=== PATIENT | female | born 1930 | race Caucasian/White ===

== ENCOUNTER 2018-09-16 13:03 | Emergency (ER) | payer OTHER ==
[~2018-09-16] VITALS: Ht 157.5 cm; Wt 62.6 kg
[2018-09-16 13:34] VITALS: Ht 157.5 cm; Wt 62.6 kg
[2018-09-16 14:38] LABS: BASOPHIL % 0.2 % (0-2); PLATELET COUNT 272 x10^3mcL (130-400)
[2018-09-16 14:50] LABS: CALCIUM 9.3 mg/dL (8.5-10.1); CARBON DIOXIDE 30.4 mmol/L (21-32); CHLORIDE SERUM 103 mmol/L (98-107); CREATININE SERUM 1.2 mg/dL (0.6-1.0); GLUCOSE SERUM 118 mg/dL (74-106); POTASSIUM SERUM 5.2 mmol/L (3.5-5.1); SODIUM SERUM 139 mmol/L (136-145)
[2018-09-16 14:54] LABS: ALKALINE PHOSPHATASE 55 U/L (46-116); ALT/SGPT 22 U/L (14-59); AST/SGOT 21 U/L (15-37); BILIRUBIN TOTAL 0.5 mg/dL (0.20-1.00); TOTAL PROTEIN, SERUM 7.5 g/dL (6.4-8.2)
[2018-09-16 16:39] VITALS: BP 140/88
== END 2018-09-16 16:39 | disposition home or self-care (01) ==
LOC: ED 13:03
PROVIDERS: Emergency Medicine
DX: R42 Dizziness and giddiness (principal); J44.9 Chronic obstructive pulmonary disease, unspecified; Z86.73 Personal history of transient ischemic attack (TIA), and cerebral infarction without residual deficits; Z90.710 Acquired absence of both cervix and uterus; Z88.0 Allergy status to penicillin
CPT/HCPCS: 36415; 82962

== ENCOUNTER 2018-12-07 20:56 | Inpatient (IN) | payer OTHER ==
[~2018-12-07] VITALS: Ht 157.5 cm; Wt 60.1 kg
[2018-12-07 20:58] VITALS: Ht 157.5 cm; Wt 60.1 kg
--- NOTE | 2018-12-07 21:06 | NUR ---
PER MEDIC PT WAS AT HOME WHEN SHE STARTED TO FEEL SOB. PER MEDIC PT FAMLY TOOK PULSE OX AND WAS 86%. PER MEDIC PTS FAMILY WAS CONCERNED AND CALLED 911. PT STS THAT SHE WAS FEELING SOB ALL DAY AND WAS JUST RELAXING AT HOME. PT STS THAT SHE HAS BEEN HAVING A COUGH FOR THE LAST THREE DAYS WITH WHITE PHLEGM. PT STS SHE IS IN AFIB BUT IS NOT EXPERIENCING ANY CHEST PAIN AT THIS MOMENT. PT STS THAT SHE DOES NOT HAVE A HX OF ANY HEART IRREGULARITIES. UPON ASSESSMENT PT HAS CLEAR JENNIFER LUNG SOUNDS. PT IS ALERT AND ORIENTED, SPEAKING IN CLEAR AND FULL SENTENCES. VSS. WILL CONTINUE TO MONITOR.
--- NOTE | 2018-12-07 21:12 | NUR ---
PT STS SHE IS USUALLY ON 3L AT HOME NC. PT INITIALLY WAS HAVING LABORED BREATHING WITH TRIPODING NOTED. PT STS THAT SHE IS NOW FEELING BETTER SITTING BACK ON GURNEY SPAO2 98%.
--- NOTE | 2018-12-07 21:27 | NUR ---
MEDICATED ORDERED. LAB AT BEDSIDE.
[2018-12-07 21:39] LABS: BASOPHIL % 0.3 % (0-2); PLATELET COUNT 366 x10^3mcL (130-400)
[2018-12-07] MEDS ORDERED: ALENDRONATE SOD70 M2 PO (21:48)
[2018-12-07] MEDS ORDERED: ALBUTEROL0.63 MG/3 (21:48)
[2018-12-07] MEDS ORDERED: ELIQUIS2.5 MG PO (21:49)
[2018-12-07] MEDS ORDERED: GABAPENTIN100 M2 PO (21:49)
[2018-12-07] MEDS ORDERED: DIGOXIN0.125 M1 PO (21:49)
[2018-12-07] MEDS ORDERED: METOPROLOL SUCC50 M2 PO (21:50)
[2018-12-07] MEDS ORDERED: PAROXETINE10 M1 PO (21:51)
[2018-12-07] MEDS ORDERED: MONTELUKAST SOD10 M1 PO (21:51)
[2018-12-07] MEDS ORDERED: SYMBICORT1 AE2 (21:51)
[2018-12-07] MEDS ORDERED: MUCINEX600 MG PO (21:52)
[2018-12-07 21:57] LABS: CHLORIDE SERUM 106 mmol/L (98-107); GLUCOSE SERUM 122 mg/dL (74-106); POTASSIUM SERUM 4.2 mmol/L (3.5-5.1); SODIUM SERUM 144 mmol/L (136-145)
[2018-12-07 22:04] LABS: ALKALINE PHOSPHATASE 75 U/L (46-116); ALT/SGPT 47 U/L (14-59); AST/SGOT 46 U/L (15-37); BILIRUBIN TOTAL 0.69 mg/dL (0.20-1.00)
[2018-12-07 22:07] LABS: ALBUMIN 2.5 g/dL (3.4-5.0)
--- NOTE | 2018-12-07 22:33 | NUR ---
DR. SCHNEIDER INSTRUCTED TO PLACE PT ON 6L NC. ATTEMPTED TO TREND DOWN PT SPAO2 WENT TO 83%. PT PLACED BACK ON 15L MASK. DR. SCHNEIDER INFORMED.
--- NOTE | 2018-12-07 23:01 | NUR ---
MEDICATED ORDERED SEE EMAR.
[2018-12-08] VITALS (7 sets, daily range): BP systolic 88–131; BP diastolic 43–58
--- NOTE | 2018-12-08 00:17 | NUR ---
PER DR. JENNIE TUBBS TO MOVE PT AFTER [facility].
--- NOTE | 2018-12-08 00:31 | NUR ---
PAGED DR. MOSLEY FOR ADMITTING ORDERS. WAITING FOR CALLBACK.
--- NOTE | 2018-12-08 00:55 | NUR ---
RECEIVED PT FROM ER VIA GURNEY ACCOMPANIED WITH NURSES, PT SEEN, ALERT AND ORIENTED X 4 AND VERY VERBALLY RESPONSIVE, DENIES HEADACHE OR DIZZINESS, LABORED BREATHING NOTED, LUNG SOUNDS CRACKLES, ON NON-REBREATHER 15L WITH SPO2:94%, ON TELE#13 A-FIB, SL TO RAC, PULSES PALPABLE, NO EDEMA NOTED, GENERALIZED WEAKNESS, ABD SOFT WITH ACTIVE BS, NO BM AT THIS TIME, PHILLIP VIA GRAVITY DRAINING CLEAR YELLOW URINE, NO OPEN PRESSURE INJURY NOTED, PRIMARY NURSE-WIL AT BEDSIDE FOR CONT CARE.
--- NOTE | 2018-12-08 01:04 | NUR ---
SPOKE TO DR. MOSLEY REGARDING CARDIZEM IVP ORDERS, PER DR. MOSLEY, INPUT ORDER AND MEDICATIONS WILL BE ADJUSTED TOMORROW.
--- NOTE | 2018-12-08 01:27 | NUR ---
PT PLACED ON 10L OXYMIZER BY RT, CURRENT O2 SATURATION AT 94-95%. PT TOLERATING WELL. WILL CONTINUE TO MONITOR.
--- NOTE | 2018-12-08 05:44 | NUR ---
PT RESTING IN BED. EASILY AROUSABLE TO NAME. DENIES PAIN. NO C/O CP. DENIES FEELING SOB. ENCOURAGED PT TO CALL WHEN PT FEELS SOB IN ORDER TO GET RT TREATMENT. PT VERBALIZED UDNERSTANDING. CALL LIGHT WITHIN REACH. SAFETY MEASURES IN PLACE. WILL ENDORSE TO ONCOMING NURSE.
[2018-12-08 06:38] LABS: BASOPHIL % 0.3 % (0-2); PLATELET COUNT 363 x10^3mcL (130-400)
--- NOTE | 2018-12-08 06:39 | NUR ---
PT SLEPT THROUGHOUT NIGHT. DENIES PAIN. NO S/S ACUTE DISTRESS. NO CHANGES OVERNIGHT. ALL NEEDS MET AND ATTENDED TO. IV SITE REMAINS CDI, NO ERYTHEMA OR EDEMA. CALL LIGHT WITHIN REACH. SAFETY MEASURES IN PLACE. WILL ENDORSE CARE TO ONCOMING SHIFT.
[2018-12-08 07:03] LABS: RED CELL DISTRIBUTION WIDTH 15.7 % (11.5-14.5)
[2018-12-08 07:06] LABS: CALCIUM 9.1 mg/dL (8.5-10.1); CARBON DIOXIDE 36.5 mmol/L (21-32); CHLORIDE SERUM 101 mmol/L (98-107); CREATININE SERUM 1.1 mg/dL (0.6-1.0); GLUCOSE SERUM 115 mg/dL (74-106); MAGNESIUM 1.9 mg/dL (1.8-2.4); PHOSPHOROUS 3.7 mg/dL (2.5-4.9); POTASSIUM SERUM 3.9 mmol/L (3.5-5.1); SODIUM SERUM 144 mmol/L (136-145)
--- NOTE | 2018-12-08 07:10 | NUR ---
RECEIVED PT FROM DARA RN. PT FOUND RESTING IN BED WITH BOTH EYES CLOSED. EASILY AROUSABLE TO VERBAL STIMULI. FACE SYMMETRICAL, SPEECH CLEAR. NO OLMOS. NO DIZZINESS. DENIES SOB ON 10L OXYMIZER. FINE/COARSE CRACKLES HEARD BILATERALLY. RR EVEN/SHALLOW/UNLABORED. DENIES CHEST PAIN. AFIB ON TELE 13, HR 87. AA/OX4. FOLLOWS COMPLEX COMMANDS, RESPONDS TO VERBAL STIMULI, FACE SYMMETRICAL, SPEECH CLEAR. PHILLIP IN TACT DRAINING CLEAR/YELLOW URINE. MILD GENERALIZED WEAKNESS NOTED. ABLE TO REPOSITION INDEPENDENTLY. IV WNL TO RAC, NO REDNESS, NO SWELLING, NO INFILTRATION. PATENT AND FLUSHES WELL. SALINE LOCKED. INSTRUCTED TO USE CALL LIGHT TO CALL FOR ASSISTANCE PRN. VERBALIZED UNDERSTANDING. SKIN WARM, DRY, INTACT. BED IN LOW POSITION. CALL LIGHT WITHIN REACH. WILL CONTINUE TO MONITOR.
--- NOTE | 2018-12-08 09:08 | NUR ---
IV LEAKING TO RFA, IV REMOVED, CATHETER IN TACT. PRESSURE APPLIED. SITE WNL. IV INSERTED TO LFA, 22 GAUGE. PT AND FLUSHES WELL. SALINE LOCKED. NO REDNESS, NO SWELLING, NO INFILTRATION. PATIENT COMPLAINT OF PAIN TO LH. PT RATES PAIN 4/10, PT DESCRIBES ACHING. ACUTE. GIVEN PO TYLENOL. PT ON 8L OXYMIZER, O2 SAT 91%, PT RECEIVED BREATHING TREATMENT. NO S/S OF ACUTE DISTRESS. PERRLA, BRISK, SIZE 2. FACE SYMMETRICAL. SPEECH CLEAR. PHILLIP IN TACT. AA/OX4. BED IN LOW POSITION. CALL LIGHT WITHIN REACH. WILL CONTINUE TO MONITOR.
--- NOTE | 2018-12-08 09:37 | NUR ---
O2 SAT 98% ON 8L OXYMIZER, HR RANGES BETWEEN 100-126, PO CARDIZEM GIVEN. NO CHEST PAIN. PT RESTING IN BED WITH BOTH EYES CLOSED. NO S/S OF ACUTE DISTRESS. NO SOB NOTED. CONGESTED COUGH NOTED. BED IN LOW POSITION. CALL LIGHT WITHIN REACH. WILL CONTINUE TO MONITOR.
--- NOTE | 2018-12-08 10:34 | NUR ---
PT RESTING IN BED WITH BOTH EYES CLOSED. NO S/S OF ACUTE DISTRESS. NO COMPLAINT OF PAIN. NO SOB ON 8L OXYMIZER. RR EVEN/UNLABORED AT THIS TIME. CHEST EXPANSION SYMMETRICAL. NO S/S OF CHEST PAIN. AFIB ON TELE, HR 119. GIVEN PO CARDIZEM X1, SEE EMAR. IV WNL TO LFA, SALINE LOCKED. BED IN LOW POSITION. CALL LIGHT WITHIN REACH. WILL CONTINUE TO MONITOR CLOSELY.
--- NOTE | 2018-12-08 12:23 | NUR ---
HR DECREASING AFIB HR 90 AT THIS TIME. NO CHEST PAIN. NO OLMOS. NO DIZZINESS. NO COMPLAINT OF SOB ON 8L OXYMIZER, O2 SAT DECREASED TO 85%, OXYGEN TITRATED TO 9L, O2 SAT INCREASED TO 93% WITH OXYMIZER. RT AT BEDSIDE FOR TREATMENT. PT CALM/COOPERATIVE. SPEAKING IN FULL SENTENCES. NO S/S OF ACUTE DISTRESS. SPEECH CLEAR. FACE SYMMETRICAL. FAMILY AT BEDSIDE. IV WNL TO LFA, NO REDNESS, NO SWELLING, NO INFILTRATION. PATENT. IV ANTIBIOTIC RUNNING. BED IN LOW POSITION. CALL LIGHT WITHIN REACH. WILL CONTINUE TO MONITOR.
--- NOTE | 2018-12-08 13:30 | NUR ---
LATE ENTRY: OCCURED AT 1325. BP TRENDING LOW, LEFT UPPER ARM 70/40, DR. BARAKAT AWARE. RECEIVED TELEPHONE ORDERS FOLLOWS: 200ML ALBUMIN 25% AT 100ML/HR ONE TIME FOR LOW BLOOD PRESSURE, DISCONTINUE CARDIZEM 30MG PO, IF SBP <90 AFTER RECEIVING ALBUMIN, GIVE MIDODRINE 5 MG PO Q 6HRS PRN FOR SBP <90. ORDER ENTERED. WILL CARRY OUT. PT SWEATING. REPORTS FEELING "LIGHT HEADED" WITH CHANGE IN VISION. AFIB WITH HR 97 ON TELE 13. DENIES CHEST PAIN. O2 SAT 92% ON 8L OXYMIZER. DENIES SOB AT THIS TIME. WILL CONTINUE TO MONITOR. CALL LIGHT WITHIN REACH. BED IN LOW POSITION. IV WNL TO LFA, NO REDNESS, NO SWELLING, NO INFILTRATION. PATENT AND FLUSHES WELL. FAMILY AT BEDSIDE. WILL CONTINUE TO MONITOR.
--- NOTE | 2018-12-08 15:25 | NUR ---
BP TRENDING UP 94/43 (63), HR 97, DENIES N/V. NO CHEST PAIN. NO DIZZINESS. NO OLMOS. NO SWEATING AT THIS TIME. FOUND RESTING IN BED WITH BOTH EYES CLOSED. EASILY AROUSABLE TO VERBAL STIMULI, FACE SYMMETRICAL. SPEECH CLEAR. REPORTS MILD PAIN TO RLE FOOT, ACHING, INTERMITTENT, GIVEN TYLENOL PO. RATES PAIN 4/10. IV WNL TO LFA, NO REDNESS, NO SWELLING, NO INFILTRATION. PATENT AND FLUSHES WELL. PT CALM/COOPERATIVE. BED IN LOW POSITION. CALL LIGHT WITHIN REACH. WILL CONTINUE TO MONITOR.
--- NOTE | 2018-12-08 18:01 | NUR ---
PT FOUND RESTING IN BED WITH BOTH EYES CLOSED. NO S/S OF ACUTE DISTRESS. DROWSY BUT AROUSABLE TO TACTILE STIMULI. BP 11/355, HR 71, TEMP 97.2F, RR 15, O2 SAT 100% ON 8L OXYMIZER, TITRATED TO 7L. RR EVEN/UNLABORED AT THIS TIME. CALM/COOPERATIVE. IV WNL TO LFA, NO REDNESS, NO SWELLING, NO INFILTRATION. PATENT AND FLUSHES WELL. SALINE LOCKED. FAMILY AT BEDSIDE. WILL ENDORSE TO ONCOMING SHIFT.
--- NOTE | 2018-12-08 19:18 | NUR ---
RECEIVED PT FROM PREVIOUS SHIFT. AAO. SITTING UP IN BED SPEAKING TO FAMILY AT BEDSIDE. TELE #13 SHOWING A-FIB, HR 95. DENIES CP. DENIES PALPITATIONS. PT C/O NERVE PAIN R/T NEUROPATHY, PT MISSED 2 DOSES YESTERDAY AND "IT GOT REALLY BAD". PT AWARE OF NEXT DOSE SCHEDULED FOR TONIGHT. RT CALLED SINCE PT REQUESTING BREATHING TX. NO S/S ACUTE DISTRESS. ON 9L OXYMIZER, BREATHING E/U. CALL LIGHT WITHIN REACH. SAFETY MEASURES IN PLACE. WILL CONTINUE TO MONITOR.
--- NOTE | 2018-12-09 00:21 | NUR ---
PT RESTING IN BED WITH EYES CLOSED. REMAINS ON 9L OXYGEN OXYMIZER. BREATHING E/U. NO SIGNS OF PAIN APPARENT. CALL LIGHT WITHIN REACH. SAFETY MEASURES IN PLACE. WILL CONTINUE TO MONITOR.
[2018-12-09 04:43] VITALS: BP 120/73
--- NOTE | 2018-12-09 05:48 | NUR ---
PT SLEPT WELL THROUGHOUT NIGHT. BREATHING E/U ON 9L OXYMIZER. DENIES SOB, PT NOT REQUESTING BREATHING TX AT THIS TIME. DENIES PAIN. DENIES PALPITATIONS. NO S/S ACUTE DISTRESS. NO CHANGES OVERNIGHT. ALL NEEDS MET AND ATTENDED TO. IV SITE REMAINS CDI, NO ERYTHEMA OR EDEMA. CALL LIGHT WITHIN REACH. SAFETY MEASURES IN PLACE. WILL ENDORSE CARE TO ONCOMING SHIFT.
--- NOTE | 2018-12-09 07:06 | NUR ---
BEDSIDE REPORT GIVEN TO MIKE HERNANDEZ. ALL QUESTIONS AND CONCERNS ADDRESSED.
--- NOTE | 2018-12-09 07:09 | NUR ---
RECEIVED PT FROM SHIFT NURSE ASLEEP BUT AROUSABLE. APPEARS IN NO ACUTE DISTRESS. RESP EVEN AND UNLABORED ON 9L OXYMIZER. HEPLOCK PATENT. PHILLIP CATH IN PLACE DRAINING YELLOW URINE. FALL PRECAUTIONS IN PLACE. BED IN LOW POSITION. CALL LIGHT WITHIN REACH. WILL CONTINUE TO MONITOR.
[2018-12-09 07:42] LABS: BASOPHIL % 0.1 % (0-2); PLATELET COUNT 396 x10^3mcL (130-400); RED CELL DISTRIBUTION WIDTH 16.1 % (11.5-14.5)
[2018-12-09 08:31] LABS: ALBUMIN 3.2 g/dL (3.4-5.0); ALKALINE PHOSPHATASE 74 U/L (46-116); ALT/SGPT 59 U/L (14-59); AST/SGOT 48 U/L (15-37); BILIRUBIN TOTAL 0.87 mg/dL (0.20-1.00); CALCIUM 9.7 mg/dL (8.5-10.1); CARBON DIOXIDE 34.4 mmol/L (21-32); CHLORIDE SERUM 101 mmol/L (98-107); CREATININE SERUM 1.4 mg/dL (0.6-1.0); GLUCOSE SERUM 162 mg/dL (74-106); MAGNESIUM 2.3 mg/dL (1.8-2.4); SODIUM SERUM 146 mmol/L (136-145); TOTAL PROTEIN, SERUM 7.5 g/dL (6.4-8.2)
[2018-12-09 08:45] VITALS: BP 104/63
--- NOTE | 2018-12-09 08:53 | NUR ---
PT HR 130. PT DENIES SOB. DENIES CHEST PAIN OR PRESSURE. WILL CONTINUE TO MONITOR.
[2018-12-09 11:00] VITALS: BP 95/57
--- NOTE | 2018-12-09 11:45 | NUR ---
PT SITTING UP IN BED RESTING. RESP EVEN AND UNLABORED ON 7L OXYMIZER. DENIES SOB. CALL LIGHT WITHIN REACH. WILL CONTINUE TO MONITOR.
[2018-12-09 13:17] VITALS: BP 103/59
[2018-12-09 18:13] VITALS: BP 100/52
--- NOTE | 2018-12-09 18:25 | NUR ---
PT SITTING UP IN BED TALKING WITH FAMILY MEMBERS. RESP EVEN AND UNLABORED ON 7L OXYMIZER. 02 SAT 96% IV INTACT AND PATENT. PHILLIP CATH IN PLACE DRAINING YELLOW COLORED URINE. FALL PRECAUTIONS IN PLACE. BED IN LOW POSITION. CALL LIGHT WTIHIN REACH. WILL BE ENDROSED.
--- NOTE | 2018-12-09 19:50 | NUR ---
PT. AWAKE, ALERT, ORIENTED X4. DENIES HEADACHE OR DIZZINESS. BREATH SOUNDS DIMINISHED BLL, EXPIR. WHEEZING BUL. RESP. EVEN, UNLABORED. NO SOB NOTED. PT. ON OXYMIZER, 7L. ABD. SOFT AND FLAT, BOWEL SOUNDS ACTIVE. PT. C/O CONSTIPATION. DENIES ABD. PAIN, DENIES NAUSEA. F/C DRAINING WELL TO GRAVITY. NO EDEMA NOTED TO EXTREMITIES. PEDAL PULSES MODERATE. IV SITE INTACT. FAMILY AT BEDSIDE. CALL LIGHT WITHIN REACH.
--- NOTE | 2018-12-09 21:01 | NUR ---
PT C/O CONSTIPATION DURING ASSESMENT ROUNDS. PT. STATED THAT SHE HAS THE URGE BUT HAS NOT BEEN ABLE TO HAVE A BM. / [employer] FINANCIAL WRITER, MADE AWARE. RECEIVED T/O FOR ONE TIME DOSE OF MOM.
[2018-12-09 21:29] VITALS: BP 113/56
--- NOTE | 2018-12-10 01:10 | NUR ---
PT. APPEARS COMFORTABLE, W/ EYES CLOSED. NO COMPLAINTS THUS FAR. NO RESP. DISTRESS. CALL LIGHT REMAINS WITHIN REACH.
[2018-12-10 05:08] VITALS: BP 133/67
--- NOTE | 2018-12-10 06:45 | NUR ---
PT. SLEEPING. NO C/O THROUGHOUT NIGHT. PT. UNABLE TO HAVE BM SINCE RECEIVING MOM. IV SITE REMAINS INTACT. CALL LIGHT WITHIN REACH. WILL ENDORSE PT. CARE TO INCOMING NURSE.
--- NOTE | 2018-12-10 07:49 | NUR ---
RECEIVED PATIENT FROM MIKE MARTINEZ. PATIENT SEATED IN BED, USING OXYMIZER AT [address] GARCIA IN TO REVIEW PATIENT FILE. NO COMPLAINTS AT THIS TIME. REPEAT CXR BEING TAKEN AT THIS TIME. MADE PATIENT AWARE OF PLAN OF CARE FOR TODAY AND PATIENT AGREES. CALL LIGHT IN REACH AT THIS TIME.
[2018-12-10 11:46] LABS: ALKALINE PHOSPHATASE 74 U/L (46-116); ALT/SGPT 93 U/L (14-59); AST/SGOT 71 U/L (15-37); CALCIUM 9.7 mg/dL (8.5-10.1); CARBON DIOXIDE 36.2 mmol/L (21-32); CHLORIDE SERUM 101 mmol/L (98-107); CREATININE SERUM 1.5 mg/dL (0.6-1.0); GLUCOSE SERUM 205 mg/dL (74-106); POTASSIUM SERUM 4.4 mmol/L (3.5-5.1); SODIUM SERUM 144 mmol/L (136-145); TOTAL PROTEIN, SERUM 6.9 g/dL (6.4-8.2)
[2018-12-10 11:47] LABS: ALBUMIN 2.9 g/dL (3.4-5.0)
[2018-12-10 11:57] VITALS: BP 112/45
[2018-12-10 11:58] LABS: BASOPHIL % 0 % (0-2); PLATELET COUNT 481 x10^3mcL (130-400)
--- NOTE | 2018-12-10 14:28 | NUR ---
PATIENT IN BED RESTING AT THIS TIME. FAMILY AT BEDSIDE. HR CONTINUES TO BE IN THE 100S, INTERMITTENT ELEVATION TO 120s. DENIES PALPITATIONS, CHEST PAIN. WILL CONTINUE TO MONITOR.
--- NOTE | 2018-12-10 15:23 | NUR ---
PHYSICAL THERAPY DAILY NOTES CO-SIGN All documentation done by the Head Concierge for 12/10/18 has been reviewed. I agree with the documentation. Reviewed/Co-Signed by: Yesenia Marie PT Documentation Done by:GLADYS HUBBARD PTA
--- NOTE | 2018-12-10 16:25 | NUR ---
SPOKE AT LENGTH TO PATIENT DAUGHTER ABOUT DR DENNIS AND DR DONG PLAN OF CARE. PATIENT DAUGHTER WOULD LIKE TO SPEAK WITH DR DENNIS, INFORMED THEM TO WAIT FOR MULTIMEDIA DEVELOPER TO CONTACT THEM OR TO TRY TO ARRIVE EARLY TOMORROW AM TO SPEAK WITH DR DENNIS. ALSO, NEW IV ACCESS INSERTED TO PATIENT RFA. FAMILY AT BEDSIDE, CALL LIGHT IN REACH.
[2018-12-10 17:38] VITALS: BP 110/58
--- NOTE | 2018-12-10 18:41 | NUR ---
PATIENT SLEEPING IN BED. DURING DINNER TRAY CONSUMPTION, HR BECAME ELEVATED TO 120-135s. NOTIFIED BY [employer]. PRN CARDIZEM IVP ADMINISTERED. PATIENT DENIES CHEST PAIN, DIZZINESS, PALPITATIONS. WILL CONTINUE TO MONITOR AND ENDORSE TO ONCOMING NURSE.
--- NOTE | 2018-12-10 19:45 | NUR ---
AWAKE AND VERBALLY RESPONSIVE. ABLE TO MAKE NEEDS KNOWN. SKIN WARM AND DRY TO TOUCH. RESPIRATION EVEN AND UNLABORED. NO S/S OF ACUTE DISTRESS. ON TELE #13 WITH AFIB, NO C/O OF CHEAT PAIN. PT CLAINED NO BM FOR 4DAYS. DR WOOTEN WAS CALLED,LEFT MESSAGE WITH EXCHANGE., AWAITNG FOR RETURN CALL.
--- NOTE | 2018-12-10 21:10 | NUR ---
DR DENNIS GAVE ORDERS AND CARRIED OUT. DULCOLAX TAB 10MG PO GIVEN ORDERED/MUCINEX GIVEN FOR COUGH ORDERED.WILL CONTINUE T MONITOR.
[2018-12-10 21:44] VITALS: BP 150/60
--- NOTE | 2018-12-10 23:15 | NUR ---
ASSISSTED WITH BED MAGALLANES, HAD EPISODE OF X1 BM DARK BROWNISH COLOR FORMED IN LARGE AMOUNT. GOOD PERICARE RENDERED. KEPT CLEAN AND DRY.
--- NOTE | 2018-12-11 00:45 | NUR ---
EYES CLOSED, APPRENTLY ASLEEP SOUNDLY. , RESPONSIVE TO VERBAL STIMULI. MAINTAINED A THERAPEUTIC ENVIRONMENT. BED IN LOWEST POSITION FOR SAFETY.
[2018-12-11 05:46] VITALS: BP 161/74
--- NOTE | 2018-12-11 06:06 | NUR ---
ALL DUE MEDICATIONS GIVEN AND WELL TOLERATED. NO S/S OF ASPIRATION NOTED. KEPT CLEAN AND DRY. ALL NEEDS ATTENDED.
[2018-12-11 06:18] VITALS: BP 132/76
--- NOTE | 2018-12-11 07:10 | NUR ---
RECEIVED PATIENT FROM AIR DUCT MECHANIC NURSE. PATIENT IS AWAKE, ALERT AND ORIENTED. TELE#13,A-FIB/A-FLUTTER, HR 88. DENIES CHEST PAIN AND DISCOMFORT. ON ELIQUIS PO. PATIENT IS ON OXYMIZER 7L, RESP E/U. FALL PREC IN PLACE. IV NOTED TO RFA, SALINE LOCKED, NO S/S ERYTHEMA AT SITE. CALL LIGHT WITHIN EASY REACH. WILL CONTINUE PLAN OF CARE.
[2018-12-11 09:34] VITALS: BP 110/41
[2018-12-11] MEDS ORDERED: PRE20 PO (10:02)
[2018-12-11] MEDS ORDERED: METOPROLOL TART25 M1 PO (10:03)
--- NOTE | 2018-12-11 14:48 | NUR ---
PATIENT UP WITH PT AT THIS TIME. TOLERATING WELL.
--- NOTE | 2018-12-11 14:50 | NUR ---
TITRATED PT OFF THE OXYMIZER AND PLACED HER ON 5L NC WITH BUBBLE HUMIDIFIER ORDERED. PT SPO2 WAS 95%. NO RESP DISTRESS NOTED. RN MADE AWARE. WILL CONT TO MONITOR
[2018-12-11 17:29] VITALS: BP 122/56
[2018-12-11 18:18] VITALS: BP 117/88
--- NOTE | 2018-12-11 18:29 | NUR ---
PATIENT RESITING EASY. DENIES PAIN AND DISCOMFORT AT THIS TIME. PHILLIP CARE COMPLETED. RESP E/U ON 5L NC. PATIENT CARE TO BE ENDORSED TO CUSTOMER SOLUTIONS SUPERVISOR NURSE.
--- NOTE | 2018-12-11 19:30 | NUR ---
RECIEVED PT IN NO ACUTE DISTRESS. AOX4. TELE #13, AFIB, HR 110'S. DENIES DIZZINESS. LUNGS CLEAR ON NC @ 5L, DENIES SOB. PHILLIP IN PLACE WITH DOLORES URINE. IV TO RAC, NO REDNESS/SWELLING. BED IN LOWEST POSITION, 2 SIDE RAILS UP, CALL LIGHT IN REACH. INSTRUCTED TO CALL FOR ASSISTANCE.
[2018-12-11 20:07] VITALS: BP 143/78
--- NOTE | 2018-12-12 02:38 | NUR ---
RESTING IN BED WITH EYES CLOSED. BREATHIG E/U. NO ACUTE DISTRESS NOTED. WILL CONTINUE TO MONITOR.
[2018-12-12 04:41] VITALS: BP 116/72
--- NOTE | 2018-12-12 06:15 | NUR ---
NO C/O DIZZINESS OVERNIGHT. HR 80-110'S THROUGHOUT SHIFT. O2 SAT 94% ON 5L NC. PT HAD BM X 3. NO ACUTE DISTRESS NOTED. WILL ENDORSE TO ONCOMING RN.
--- NOTE | 2018-12-12 07:20 | NUR ---
RECEIVED PATIENT FROM DIGITAL ACCOUNT DIRECTOR NURSE. PATIENT IS RESTING WITH BOTH EYES CLOSED, AROUSABLE. TELE#13, A-FIB/A-FLUTTER, HR 102. ON 5L NC, RESP E/U. PHILLIP CATHETER DRIANING URINE TO GRAVITY WELL. IV NOTED TO RAC, SALINE LOCKED, NO S/S ERYTHEMA AT SITE. CALL LIGHT WITHIN EASY REACH. FAL PREC IN PLACE. WILL CONTINUE PLAN OF CARE.
[2018-12-12 08:07] VITALS: BP 153/87
[2018-12-12 13:09] VITALS: BP 119/73
--- NOTE | 2018-12-12 15:46 | NUR ---
REPORT CALLED AND GIVEN TO JAMA ANDERSON AT [facility]. PATIENT SCHEDULED FOR P/UP AT 1600.
--- NOTE | 2018-12-12 16:12 | NUR ---
PHILLIP CATHETER DC'D AT THIS TIME. PATIENT PREPARED FOR TRANSFER TO [facility]IA [facility].
--- NOTE | 2018-12-12 16:43 | NUR ---
PATIENT TRANSFERRED VIA [facility] WITH [facility] AT THIS TIME. PATIENT AWAKE, ALERT AND ORIENTED. VS STABLE. NO S/S ACUTE DISTRESS. NO C/O PAIN OR DISCOMFORT. ALL TRANSFER PAPERWORK EXPLAINED TO PATIENT AND SON. TELE MONITOR REMOVED AND RETURNED TO [employer].
== END 2018-12-12 16:43 | DRG 291 ==
LOC: ED 20:56 → DU 23:13
PROVIDERS: Emergency Medicine; Internal Medicine Nephrology; Internal Medicine Pulmonary Disease; ADMIT Internal Medicine Pulmonary Disease
DX: I11.0 Hypertensive heart disease with heart failure (principal); J96.21 Acute and chronic respiratory failure with hypoxia; J44.1 Chronic obstructive pulmonary disease with (acute) exacerbation; J81.1 Chronic pulmonary edema; I48.1 Persistent atrial fibrillation; J44.0 Chronic obstructive pulmonary disease with (acute) lower respiratory infection; I50.33 Acute on chronic diastolic (congestive) heart failure; M81.0 Age-related osteoporosis without current pathological fracture; J20.9 Acute bronchitis, unspecified; Z99.81 Dependence on supplemental oxygen; Z68.24 Body mass index [BMI] 24.0-24.9, adult; Z87.891 Personal history of nicotine dependence; Z86.73 Personal history of transient ischemic attack (TIA), and cerebral infarction without residual deficits
CPT/HCPCS: 36600; 97110-GP; 97116-GP; 97530-GP; G0378; J0456; J1940; J2920; J3490; J7050; J7512; J7626; P9047; Q0092

== ENCOUNTER 2019-05-18 16:46 | Emergency (ER) | payer OTHER ==
[~2019-05-18] VITALS: Ht 157.5 cm; Wt 62.6 kg
[~2019-05-18 16:46] MED LIST: ALBUTEROL0.63 MG/3; ALENDRONATE SOD70 M2 PO; DIGOXIN0.125 M1 PO; ELIQUIS2.5 MG PO; GABAPENTIN100 M2 PO; METOPROLOL SUCC50 M2 PO; METOPROLOL TART25 M1 PO; MONTELUKAST SOD10 M1 PO; MUCINEX600 MG PO; PAROXETINE10 M1 PO; PRE20 PO; SYMBICORT1 AE2
[2019-05-18 16:56] VITALS: Ht 157.5 cm; Wt 62.6 kg
[2019-05-18 18:52] VITALS: BP 110/65
== END 2019-05-18 18:52 | disposition home or self-care (01) ==
LOC: ED 16:46
DX: S56.411A Strain of extensor muscle, fascia and tendon of right index finger at forearm level, initial encounter (principal); Z90.710 Acquired absence of both cervix and uterus; Z86.73 Personal history of transient ischemic attack (TIA), and cerebral infarction without residual deficits; Z88.0 Allergy status to penicillin; W22.8XXA Striking against or struck by other objects, initial encounter; Y93.89 Activity, other specified; Y92.89 Other specified places as the place of occurrence of the external cause; Y99.8 Other external cause status
CPT/HCPCS: Q0092